=== PATIENT | male | born 1955 | race Caucasian/White ===

== ENCOUNTER 2018-05-17 14:25 | Emergency (ER) | payer OTHER ==
[2018-05-17] MEDS ORDERED: Acetaminophen TAB* 325 MG PO ONE (14:42)
[2018-05-17] MEDS ORDERED: Acetaminophen TAB* 325 MG ONE (14:43)
[2018-05-17] MEDS ORDERED: NS 0.9% 1000 ML** 1,000 ML IV ONE (14:50)
--- NOTE | 2018-05-17 14:53 | ED ---
HPI Chest Pain - HPI Summary HPI Summary: Pt is a 62 y/o M presenting to the ED with a chief complaint of chest pain onset a couple of days ago but worse today. The pt reports nonproductive cough and chest tightness. Pts father and brother have had an WA. - History of Current Complaint Chief Complaint: EDChestPainROMI Time Seen by Provider: 05/17/18 14:40 Hx Obtained From: Patient Onset/Duration: Started Days Ago, Still Present, Worse Since - today Timing: Constant, Lasting Days Initial Severity: Mild Current Severity: Mild Pain Intensity: 3 Pain Scale Used: 0-10 Numeric Chest Pain Location: Left Anterior Chest Pain Radiates: No Character: Tightness Aggravating Factor(s): Nothing Alleviating Factor(s): Nothing Associated Signs and Symptoms: Positive: Chest Pain, Shortness of Breath, Fever , Cough, Nonproductive Cough - Allergy/Home Medications Allergies/Adverse Reactions: Allergies Allergy/AdvReac Type Severity Reaction Status Date / Time No Known Allergies Allergy Verified 05/17/18 14:39 PMH/Surg Hx/FS Hx/Imm Hx Previously Healthy: Yes Endocrine/Hematology History: Denies: Hx Sickle Cell Disease Cardiovascular History: Denies: Hx Myocardial Infarction, Other Cardiovascular Problems/Disorders Respiratory History: Denies: Hx Chronic Obstructive Pulmonary Disease (COPD), Other Respiratory Problems/Disorders GI History: Denies: Other GI Disorders History: Denies: Other Problems/Disorders Musculoskeletal History: Reports: Hx Arthritis Sensory History: Reports: Hx Contacts or Glasses - READING Denies: Hx Hearing Aid Opthamlomology History: Reports: Hx Contacts or Glasses - READING Neurological History: Denies: Other Neuro Impairments/Disorders - Surgical History Surgery Procedure, Year, and Place: ORIF ANKLE - 1989 Hx Anesthesia Reactions: No Infectious Disease History: No Infectious Disease History: Denies: Traveled Outside the [place] in Last 30 Days - Family History Known Family History: Positive: Cardiac Disease - father and brother [place] - Social History Alcohol Use: None Hx Substance Use: No Substance Use Type: Reports: None Hx Tobacco Use: Yes Smoking Status (MU): Former Smoker Review of Systems Positive: Fever Positive: Chest Pain Positive: Shortness Of Breath, Cough All Other Systems Reviewed And Are Negative: Yes Physical Exam - Summary Physical Exam Summary: Appearance: Well appearing, no pain distress Skin: warm, dry, reflects adequate perfusion Head/face: normal Eyes: EOMI, LYNDSEY ENT: normal Neck: supple, non-tender Respiratory: CTA, breath sounds present Cardiovascular: tachycardic, pulses symmetrical Abdomen: non-tender, soft Musculoskeletal: normal, strength/ROM intact Neuro: normal, sensory motor intact, A&Ox3 Triage Information Reviewed: Yes Vital Signs On Initial Exam: Initial Vitals Temp Pulse Resp BP Pulse Ox 103.1 F 105 16 131/81 95 05/17/18 14:30 05/17/18 14:30 05/17/18 14:30 05/17/18 14:30 05/17/18 14:30 Vital Signs Reviewed: Yes Diagnostics - Vital Signs Vital Signs Temp Pulse Resp BP Pulse Ox 05/17/18 14:30 103.1 F 105 16 131/81 95 - Laboratory Result Diagrams: 05/17/18 18:13 05/17/18 15:27 Lab Statement: Any lab studies that have been ordered have been reviewed, and results considered in the medical decision making process. - Radiology Chest x-ray Radiology Interpretation Completed By: Radiologist Summary of Radiographic Findings: No active cardiopulmonary disease. ED physician has reviewed this report. - EKG 1441 Cardiac Rate: Tachycardia - 107bpm EKG Rhythm: Sinus Tachycardia ST Segment: Normal Ectopy: None Summary of EKG Findings: Q-waves in inferior leads. No acute changes. Chest Pain Course/Dx - Course Course Of Treatment: Pt is a 62 y/o M presenting to the ED with a chief complaint of chest pain onset a couple of days ago but worse today. The pt reports nonproductive cough and chest tightness. Pts father and brother have had an WA. Pt's lactic acid was 2.3 H, and he will be kept for another round of labs. Lactic acid has decreased to 1.8. unlikely acs at present.Pt will be discharged home with a dx of chest pain and fever. - Chest Pain Differential Diagnosis/HQI/PQRI: Angina, Chest Wall, Lower Respiratory Infection - Diagnoses Provider Diagnoses: Chest pain, Fever Discharge - Sign-Out/Discharge Documenting (check all that apply): Patient Departure Patient Received Moderate/Deep Sedation with Procedure: No - Discharge Plan Condition: Stable Disposition: HOME Prescriptions: Ibuprofen TAB* [Motrin TAB* 600 MG] 600 mg PO Q8H PRN #20 tab MDD 3 PRN Reason: Pain Forms: *Work Release Referrals: Shima Smalls, [facility] [Primary Care Provider] - Additional Instructions: Please follow up with your primary care provider within the next three days. Return to the ED with any new or worsening symptoms. - Billing Disposition and Condition Condition: STABLE Disposition: Home - Attestation Statements Document Initiated by Renayibe: Yes Documenting Scribe: Paula Landon Provider For Whom Rolan is Documenting (Include Credential): Surjit Earl MD. Scribe Attestation: Paula Mares, remingtoned for Surjit Earl MD. on 05/17/18 at 2054. Scribe Documentation Reviewed: Yes Provider Attestation: The documentation as recorded by the Paula gardner accurately reflects the service I personally performed and the decisions made by , Surjit Earl MD. Status of Scribe Document: Viewed
[2018-05-17 15:35] LABS: Hematocrit 44 % (42-52); Hemoglobin 15.5 g/dl (14.0-18.0); Mean Corpuscular HGB Conc 35 g/dl (31-36); Mean Corpuscular Hemoglobin 30 pg (27-31); Mean Corpuscular Volume 85 fL (80-94); Mean Platelet Volume 6.8 fL (7.4-10.4); Platelet Count 232 10^3/ul (150-450); Red Blood Count 5.19 10^6/ul (4.00-5.40); Red Cell Distribution Width 13 % (10.5-15); White Blood Count 16.8 10^3/ul (3.5-10.8)
[2018-05-17 15:36] LABS: Influenza A Molecular NEGATIVE (Negative); Influenza B Molecular NEGATIVE (Negative)
[2018-05-17 15:52] LABS: Albumin 3.7 g/dL (3.2-5.2); Albumin/Globulin Ratio 1.4 (1-3); BUN/Creatinine Ratio 17.6 (8-20); Calcium 8.5 mg/dL (8.6-10.3); EGFR African American 90.1 (>60); EGFR Non-African American 74.5 (>60); Globulin 2.7 g/dL (2-4); Potassium 3.7 mmol/L (3.5-5.0); Total Bilirubin 0.5 mg/dL (0.2-1.0); Total Protein 6.4 g/dL (6.4-8.9)
[2018-05-17 15:54] LABS: Troponin I 0.02 ng/mL (<0.04)
[2018-05-17 16:00] LABS: Activated Partial Thrombo Time 30.1 seconds (26.0-36.3); INR 1.18 (0.77-1.02)
[2018-05-17 16:04] LABS: ABS Basophils 0.1 10^3/ul (0-0.2); ABS Eosinophils 0 10^3/ul (0-0.6); ABS Lymphocytes 0.4 10^3/ul (1.0-4.8); ABS Monocytes 0.8 10^3/ul (0-0.8); ABS Neutrophils 15.4 10^3/ul (1.5-7.7); ABS Nucleated RBC 0 10^3/ul; Eosinophil % 0.1 %; Lymphocyte % 2.4 %; Nucleated Red Blood Cells % 0
[2018-05-17 17:10] LABS: Urine Appearance Clear; Urine Bilirubin Negative (Negative); Urine Blood Negative (Negative); Urine Color Yellow; Urine Glucose Negative (Negative); Urine Ketones Negative (Negative); Urine Nitrite Negative (Negative); Urine Protein Negative (Negative); Urine Specific Gravity 1.021 (1.010-1.030); Urine Urobilinogen Negative (Negative)
[2018-05-17 18:48] LABS: ABS Basophils 0 10^3/ul (0-0.2); ABS Eosinophils 0 10^3/ul (0-0.6); ABS Lymphocytes 0.7 10^3/ul (1.0-4.8); ABS Monocytes 0.8 10^3/ul (0-0.8); ABS Nucleated RBC 0 10^3/ul; Eosinophil % 0 %; Hematocrit 42 % (42-52); Hemoglobin 14.5 g/dl (14.0-18.0); Lymphocyte % 4.4 %; Mean Corpuscular HGB Conc 35 g/dl (31-36); Mean Corpuscular Hemoglobin 30 pg (27-31); Mean Corpuscular Volume 86 fL (80-94); Mean Platelet Volume 6.9 fL (7.4-10.4); Nucleated Red Blood Cells % 0; Platelet Count 219 10^3/ul (150-450); Red Blood Count 4.88 10^6/ul (4.00-5.40); Red Cell Distribution Width 13 % (10.5-15); White Blood Count 16.7 10^3/ul (3.5-10.8)
[2018-05-17 20:55] VITALS: BP 122/63
--- NOTE | 2018-05-19 21:49 | PN ---
Progress Note - Progress Note Date of Service: 05/19/18 Note: spoke with patient at 19:45 about positive blood culture anaerobic gram pos cocci resembling staph. patient has no fever and is feeling well. patient has follow up with primary tomorrow and requesting cultures to be faxed to primary which had tabitha banquet steward do. advised if develop fever or feeling worst to return otherwise this is likely a contaminant
== END 2018-05-17 21:00 | disposition home or self-care (01) ==
LOC: ED 14:25
DX: R07.89 Other chest pain (principal); R00.0 Tachycardia, unspecified; R06.02 Shortness of breath; R05 Cough; Z82.49 Family history of ischemic heart disease and other diseases of the circulatory system; Z87.891 Personal history of nicotine dependence
CPT/HCPCS: 36415; 71045; 80053; 81003; 83605; 83880; 84484; 85025; 85610; 85730; 87040; 87150; 93005; 96360; 99284; A9270-GY

== ENCOUNTER 2019-03-01 02:24 | Emergency (ER) | payer OTHER ==
--- OUTSIDE RECORDS SUMMARY | 2019-03-01 02:32 | XMS REPORT | Continuity of Care Document ---
:1955 External Reference #:[id number] Author Name Keysha Wong NP (transmitted by agent of provider Coretta Vergara) Address [address], [address] [place] [address] Care Team Providers Name Role Phone Shima Smalls NP - Family Care Team Information [employer] Director [phone] Problems Description No Information Available Social History Type Date Description Comments Sex Unknown Tobacco Use Start: Unknown Heavy tobacco smoker (more than 10 cigarettes/day) Smoking Status Reviewed: 02/01/19 Heavy tobacco smoker (more than 10 cigarettes/day) ETOH Use Denies alcohol use Tobacco Use Start: Unknown End: Patient is a former smoker Unknown Recreational Drug Use Denies Drug Use Exercise Type/Frequency Does not exercise Allergies, Adverse Reactions, Alerts Description No Known Drug Allergies Medications Active Medications SIG Qnty Indications Ordering Provider Date Advil PM 1 tab by mouth at Unknown 200-25mg bedtime as needed Capsules Aspirin Adult take one tab by Unknown 325mg mouth daily Tablets Proair HFA 2 puffs every 4 Unknown 108(90Base) hours as needed mcg/Act Aerosol Ibuprofen 1-2 tabs by mouth Unknown 200mg Capsules every 6 hours as needed Tums 1 as needed for Unknown 500mg Chewtabs acid stomach Immunizations Description No Information Available Vital Signs Date Vital Result Comment 02/01/2019 10:51am Height 68 inches 5'8" Weight 190.00 lb Heart Rate 74 /min BP Systolic 124 mmHg BP Diastolic 78 mmHg O2 % BldC Oximetry 97 % BMI (Body Mass Index) 28.9 kg/m2 10/26/2018 10:34am Height 68 inches 5'8" Weight 198.00 lb Heart Rate 62 /min BP Systolic 124 mmHg BP Diastolic 80 mmHg Respiratory Rate 16 /min O2 % BldC Oximetry 98 % BMI (Body Mass Index) 30.1 kg/m2 Results Description No Information Available Procedures Date Code Description Status 09/06/2018 72031 Sleep Study Unattended,HRT Rate,Oxygen Sat,Resp Completed Effort/Airflow Medical Devices Description No Information Available Encounters Type Date Location Provider Dx Diagnosis Office Visit 10/26/2018 [facility] G47.33 Obstructive sleep 10:30a [facility] Wong apnea (adult) [facility] (pediatric) E66.9 Obesity, unspecified Office Visit 09/14/2018 [facility] G47.33 Obstructive sleep 3:00p [facility] Wong apnea (adult) [facility] (pediatric) E66.9 Obesity, unspecified Z68.30 Body mass index (BMI) 30.0-30.9, adult Office Visit 09/07/2018 3:00p [facility] Susi Ramos2 Laura M.D. giddiness R06.83 Snoring E66.9 Obesity, unspecified E78.5 Hyperlipidemia, unspecified I77.810 Thoracic aortic ectasia Office Visit 08/31/2018 7:30a [facility] G47.9 Sleep disorder, [facility] unspecified [facility] Assessments Date Code Description Provider 02/01/2019 G47.33 Obstructive sleep apnea (adult) Keysha Wong NP (pediatric) 10/26/2018 G47.33 Obstructive sleep apnea (adult) Keysha Wong NP (pediatric) 10/26/2018 E66.9 Obesity, unspecified Keysha Wong NP 09/14/2018 G47.33 Obstructive sleep apnea (adult) Keysha Wong NP (pediatric) 09/14/2018 E66.9 Obesity, unspecified Keysha Wong NP 09/14/2018 Z68.30 Body mass index (BMI) 30.0-30.9, adult Keysha Wong NP 09/07/2018 R42 Dizziness and giddiness Susi Damian M.D. 09/07/2018 R06.83 Snoring Susi Damian M.D. 09/07/2018 E66.9 Obesity, unspecified Susi Damian M.D. 09/07/2018 E78.5 Hyperlipidemia, unspecified Susi Damian M.D. 09/07/2018 I77.810 Thoracic aortic ectasia Susi Damian M.D. 09/06/2018 G47.33 Obstructive sleep apnea (adult) Noelle Tirado MD (pediatric) 08/31/2018 G47.9 Sleep disorder, unspecified Noelle Tirado MD Plan of Treatment Future Appointment(s):08/02/2019 3:00 pm - Keysha Wong NP at [facility]02/01/2019 - Keysha Wong NPG47.33 Obstructive sleep apnea (adult) (pediatric)Follow up:6 monthsRecommendations:If you have a cold again, try using the full face mask provided today. You can also try a nasal spray like flonase to help clear congestion. Work on sleeping longer each night as your schedule permits. Most people feel best when they are able to get 7-8 hours of sleep each night. If you have difficulty with your equipment, or need to replace your mask or hoses, please contact your homecare agency.,[facility] . If you have any further questions, please call the [facility] at [phone] If you have any sleepiness while driving you MUST avoid operating a vehicle or machinery. If you feel tired while driving, pullman clerk and take a nap or switch drivers. If you know you are sleepy and need to go somewhere, arrange for a ride or use public transportation. It is very important to not risk your safety or the safety of others. Functional Status Description No Information Available Mental Status Description No Information Available Referrals Description No Information Available
[2019-03-01] MEDS ORDERED: Amoxicillin/Clavulanate TAB* 875 MG PO ONE (04:00)
[2019-03-01] MEDS ORDERED: Acetaminophen TAB* 325 MG PO ONE (04:00)
[2019-03-01 04:44] VITALS: BP 156/86
--- NOTE | 2019-03-19 18:50 | ED ---
HPI Febrile Illness - HPI Summary HPI Summary: This is a 63 year old man with a several day h/o sinus congestion and facial pain. There has been some nasal discharge, no fever, minimal cough and no shortness of breath. - History of Current Complaint Chief Complaint: EDGeneral Time Seen by Provider: 03/01/19 03:46 Pain Intensity: 4 Pain Scale Used: 0-10 Numeric - Allergy/Home Medications Allergies/Adverse Reactions: Allergies Allergy/AdvReac Type Severity Reaction Status Date / Time No Known Allergies Allergy Verified 03/01/19 02:28 PMH/Surg Hx/FS Hx/Imm Hx Previously Healthy: Yes Endocrine/Hematology History: Denies: Hx Sickle Cell Disease Cardiovascular History: Denies: Hx Myocardial Infarction, Other Cardiovascular Problems/Disorders Respiratory History: Denies: Hx Chronic Obstructive Pulmonary Disease (COPD), Other Respiratory Problems/Disorders GI History: Denies: Other GI Disorders History: Denies: Other Problems/Disorders Musculoskeletal History: Reports: Hx Arthritis Sensory History: Reports: Hx Contacts or Glasses - READING Denies: Hx Hearing Aid Opthamlomology History: Reports: Hx Contacts or Glasses - READING Neurological History: Denies: Other Neuro Impairments/Disorders - Surgical History Surgery Procedure, Year, and Place: ORIF ANKLE - 1989 Hx Anesthesia Reactions: No Infectious Disease History: No Infectious Disease History: Denies: Traveled Outside the [place] in Last 30 Days - Family History Known Family History: Positive: Cardiac Disease - father and brother [place] - Social History Alcohol Use: None Hx Substance Use: No Substance Use Type: Reports: None Hx Tobacco Use: Yes Smoking Status (MU): Former Smoker Review of Systems Negative: Fever Negative: Blurred Vision, Diplopia Positive: Nasal Discharge. Negative: Epistaxis, Sore Throat, Ear Ache Negative: Palpitations Positive: Cough. Negative: Shortness Of Breath Negative: Abdominal Pain, Vomiting All Other Systems Reviewed And Are Negative: No Physical Exam - Summary Physical Exam Summary: General: This is a well-developed, well- nourished man sitting on the stretcher in no apparent distress. The patient does not appear ill or toxic. HEENT: No facial swelling some tenderness to percussion of the cheeks. Neck: No obvious swellings. Lungs: There are no signs of respiratory distress. Coronary: Peripheral perfusion is good. Abdomen: The abdomen appears normal and is nondistended. Genitourinary: Deferred Back: Good range of motion is observed. Extremities: Good range of motion was observed in all 4 extremities. There is no sign of any trauma to the extremities. Neurologic: The patient is awake and alert, speech is fluent and conversation is appropriate. Psychiatric: The patients affect is felt to be normal and appropriate. There is no sign of any hallucinations or delusions, or any other signs of psychosis. Vital Signs On Initial Exam: Initial Vitals Temp Pulse Resp BP Pulse Ox 36.8 C 112 18 156/103 97 03/01/19 02:26 03/01/19 02:26 03/01/19 02:26 03/01/19 02:26 03/01/19 02:26 Procedures - Sedation Patient Received Moderate/Deep Sedation with Procedure: No Diagnostics - Vital Signs Vital Signs Temp Pulse Resp BP Pulse Ox 03/01/19 04:42 37.8 C 89 14 156/86 95 03/01/19 03:58 38.0 C 100 20 172/95 03/01/19 02:26 36.8 C 112 18 156/103 97 - Laboratory Lab Statement: Any lab studies that have been ordered have been reviewed, and results considered in the medical decision making process. Course/Dx - Diagnoses Provider Diagnoses: Sinusitis Discharge ED - Sign-Out/Discharge Documenting (check all that apply): Patient Departure - Discharge Plan Condition: Good Disposition: HOME Prescriptions: Amoxicillin/Clavulanate TAB* [Augmentin TAB 875*] 875 mg PO BID #20 tab Patient Education Materials: Sinusitis (ED) Referrals: Shima Smalls [employer]GANIZ[facility] CONSULTANT [Primary Care Provider] - 3 Days (if not improving, sooner if worse) - Billing Disposition and Condition Condition: GOOD Disposition: Home - Attestation Statements Document Initiated by Scribe: No
== END 2019-03-01 04:39 | disposition home or self-care (01) ==
LOC: ED 02:24
DX: J32.9 Chronic sinusitis, unspecified (principal); Z87.891 Personal history of nicotine dependence
CPT/HCPCS: 99282